=== PATIENT | female | born 1935 | race Caucasian/White ===

== ENCOUNTER 2024-10-26 17:30 | Emergency (ER) | payer MEDICARE, SELFPAY ==
[2024-10-26 17:32] VITALS: BP 169/77
[2024-10-26 18:04] LABS: % Basophils 0.4 % (0-2); % Eosinophils 2.3 % (0-6); % Immature Granulocytes 0.4 % (0-0.5); % Lymphocytes 16.6 % (20.5-51.1); % Monocytes 5.3 % (1.7-9.3); Absolute Eosinophils 0.2 10^3/uL (0-0.7); Absolute Lymphocytes 1.7 10^3/uL (1.2-3.4); Absolute Monocytes 0.5 10^3/uL (0.1-0.6); Absolute Neutrophils 7.5 10^3/uL (1.4-6.5); Hematocrit 38.7 % (37.0-47.0); Mean Corp Hgb Conc. 33.6 g/dL (33.0-37.0); Mean Corpuscular Hgb 28.5 pg (27.0-31.0); Mean Corpuscular Volume 84.9 fL (81.0-99.0); Mean Platelet Volume 10.5 fL (7.4-10.4); Nucleated Red Blood Cells % 0 %; Platelet Count 202 10^3/uL (130-400); Red Blood Cell Count 4.56 10^6/uL (4.20-5.40); Red Cell Dist. Width 15.3 % (11.5-14.5)
[2024-10-26 18:16] LABS: ALT (SGPT) 187 U/L (0-35); AST (SGOT) 167 U/L (14-36); Albumin 4.6 g/dl (3.5-5.0); Alkaline Phosphatase 161 U/L (38-126); Blood Urea Nitrogen 17 mg/dl (7-17); Calcium 9.4 mg/dl (8.4-10.2); Carbon Dioxide 26 mmol/L (22-30); Chloride 111 mmol/L (98-107); Glucose 93 mg/dl (70-99); Potassium 4.1 mmol/L (3.5-5.1); Sodium 141 mmol/L (135-145); Total Bilirubin 0.7 mg/dl (0.2-1.3); Total Protein 7.5 g/dl (6.3-8.2); eGFR > 60.00
[2024-10-26 20:15] LABS: Lipase 100 U/L (23-300)
--- NOTE | 2024-10-26 22:38 | ED.GENMED ---
History of Present Illness
General
Chief Complaint: Visual Problem
Time Seen by Provider: 10/26/24 22:38
History of Present Illness
History of Present Illness:
TIME OF INITIAL ENCOUNTER: 10:40 PM
HPI: Onset of bright wavy changes to lateral vision of left eye that lasted for 20min, resolved, then 5min episode, resolved. This occurred earlier this morning. Resolved NAVARRO. Saw [facility] who sent her to ER Last year, she had 'foggy vision'
(not like today) and diagnosed as CVA managed at [facility]. MRI 'confirmed a clot then and I was on Plavix for 3wks'. Currently on aspirin. She states that her clinical research administrator has her on a loop recorder and has not been found to be in A-fib.
EXAM:
GENERAL: Well appearing in no distress
HEENT: Moist oral mucosa
CARDIOVASCULAR: No murmurs, normal heart rate, regular rhythm, No chest wall tenderness, her heart beat is regular and there is no evidence of A-fib on auscultation
PULMONARY: No respiratory distress, breath sounds are clear and equal
ABDOMEN: Soft with no peritoneal signs, no tenderness
NEUROLOGIC: Excellent strength all extremities, no coordination deficits, no field cuts, NIHSS equals 0
PSYCHIATRIC: Appropriate mental status, normal insight and judgement
EXTREMITIES: Nontender, no edema, moves all extremities equally
SKIN: No rash, no lesions
NUMBER AND COMPLEXITY OF PROBLEMS ADDRESSED AT THE ENCOUNTER
� Chronic conditions affecting care: High blood pressure, thyroid disease
� Acute Exacerbation and/or Progression of Chronic Illness: This is an acute problem
� Differential Diagnosis includes: Ocular migraine, ophthalmic migraine, vitreous hemorrhage, vitreous detachment CVA less likely,
AMOUNT AND/OR COMPLEXITY OF DATA TO BE REVIEWED AND ANALYZED
� I performed an independent evaluation of and my interpretation is:
EKG:
CT: CAT scan of the brain shows no acute abnormality
X-rays:
Laboratory Studies: CBC unremarkable, mild transaminase elevation which she states has happened in the past, normal total bili, TSH normal
Other:
� Review of other/old records: I reviewed records, the patient was here in 2009 with extremity pain.
� Clinical information was obtained by an independent historian: I spoke to family at bedside
� Prescriptions/Medications Considered but not given:
� Further testing considered but not performed:
RISK OF COMPLICATIONS AND/OR MORBIDITY OR MORTALITY OF PATIENT MANAGEMENT
� Social determinants of health affecting care: Lives at home
� Discussion with other providers: Discussed with Dr. Reyes with outpatient management
� Escalation of care including admission/observation vs risk of discharge considered: The patient's NIHSS equals 0. CT imaging unremarkable. She has regular heart rhythm.
ANY OTHER UPDATES:
11:10 PM: No change in patient's clinical status. She currently remains symptom-free. To follow-up with her doctors at [facility].
Past History
Past History
ED Past Medical History: None
ED Past Surgical History: None
Phy Exam
Physical Exam
Physical Exam:
See HPI
Course
Orders/Labs/Results
Orders:
Orders
10/26/24 17:38
CT Head W/o Iv Contrast Urgent
Comment:
Reason For Exam: vision change, headache
10/26/24 17:45
Complete Blood Count/With Diff Urgent
Comprehensive Metabolic Panel Urgent
Lipase Urgent
Comment: ADD ON
TSH Reflex To Free T4 Urgent
10/26/24 19:40
Add On- LAB Urgent
Tests Added?: lipase
Abnormal Lab Results
10/26/24
17:45
RDW 15.3 H %
(11.5-14.5)
MPV 10.5 H fL
(7.4-10.4)
Absolute Neuts (auto) 7.5 H 10^3/uL
(1.4-6.5)
Lymphocytes % 16.6 L %
(20.5-51.1)
Chloride 111 H mmol/L
(98-107)
Creatinine 0.5 L mg/dL
(0.6-1.0)
AST 167 H U/L
(14-36)
ALT 187 H U/L
(0-35)
Alkaline Phosphatase 161 H U/L
(38-126)
10/26/24 17:45
10/26/24 17:45
Vital Signs
Initial and Last Documented VS:
Initial Vital Signs
Temp Pulse Resp BP Pulse Ox
36.5 C 61 16 169/77 96
10/26/24 17:32 10/26/24 17:32 10/26/24 17:32 10/26/24 17:32 10/26/24 17:32
Last Documented Vital Signs
Temp Pulse Resp BP Pulse Ox
36.5 C 61 18 169/77 96
10/26/24 17:32 10/26/24 17:32 10/26/24 22:03 10/26/24 17:32 10/26/24 17:32
*Critical Care Note
Total Time (30-74mins, 75-104mins- exclusive of procedures): Not Applicable
ED Attending Note
-
Portions of this chart may have been created with voice recognition software.� Occasional wrong word or��sound alike� substitutions may have occurred due to the inherent limitations of voice recognition software.
Discharge Plan
Departure
Patient Disposition: Home (Routine Discharge)
Date of Disposition: 10/26/24
Time of Disposition: 23:04
Patient with high blood pressure during this ER visit?: Yes
Discharge Problem:
Ophthalmic migraine
Instructions: Headache, Adult (DC), BLOOD PRESSURE
Referrals:
Peggy Ferrell, [Family Provider] -
Activity Restrictions/Additional Instructions:
Symptoms could be related to an ophthalmic migraine. I notified the neurologist on-call tonight. Follow-up with your doctors as an outpatient including your neurologist at [facility]. CAT scan of the brain shows no acute abnormality. Return here
if worse or other concerns.
Interventions
Interventions:
*Risk Screen - Suicide Last Done: 10/26/24 17:32
*General Assessment Last Done: 10/26/24 17:32
*ED COVID-19 Vaccine History Last Done: 10/26/24 17:32
ED- Neurological Assessment Last Done: 10/26/24 22:15
Discharge Date and Time
Print Language: WELSH
[2024-10-26 23:11] VITALS: BP 159/74
== END 2024-10-26 23:11 | disposition home or self-care (01) ==
LOC: EMR 17:30
PROVIDERS: Student in an Organized Health Care Education/Training Program; EMERGENCY PHYSICIAN Emergency Medicine; FAMILY PHYSICIAN Internal Medicine
DX: G43.809 Other migraine, not intractable, without status migrainosus (principal); Z86.73 Personal history of transient ischemic attack (TIA), and cerebral infarction without residual deficits; Z79.82 Long term (current) use of aspirin
CPT/HCPCS: 99284; 70450; 80053; 83690; 84443; 85025

== ENCOUNTER → 2025-04-22 14:35 | Outpatient (REF) | payer MEDICARE, SELFPAY | LOC: RAD 14:35 | PROVIDERS: ATTENDING PHYSICIAN Family Medicine | DX: M79.662 Pain in left lower leg (principal); R22.42 Localized swelling, mass and lump, left lower limb | CPT/HCPCS: 93971 ==